=== PATIENT | female | born 1940 | race Caucasian/White ===

== ENCOUNTER 2018-01-03 19:22 | Inpatient (IN) | payer OTHER, MEDICARE ==
[~2018-01-03] VITALS: Ht 167.6 cm; Wt 77.1 kg
[~2018-01-03 19:22] MED LIST: DICY10CA13 PO; LEXA10TA PO; OMEP20TA OR; SIMV40TA OR
[2018-01-03 19:25] VITALS: BP 139/75; PULSE 77; RESP 20; TEMP 97.7; O2SAT 97
[2018-01-03] MEDS ORDERED: SIMV10TA PO (19:29)
[2018-01-03] MEDS ORDERED: OMEP20TA93 PO (19:29)
[2018-01-03] MEDS ORDERED: LEXA10TA PO (19:29)
[2018-01-03 20:25] VITALS: BP 157/79; PULSE 77; RESP 14; O2SAT 98
[2018-01-03] MEDS ORDERED: ONDANSETRON ODT 4 MG TAB PO ONE (20:30)
[2018-01-03] MEDS ORDERED: SODIUM CHLORIDE 0.9% FLUSH 10 ML FLUSH IV FLUSH PRN ×2 (20:30→23:00)
--- NOTE | 2018-01-03 20:37 | PD ---
HPI Chief Complaint: Abdominal Pain Time Seen by Provider: 20:24 Travel History International Travel<30 days: No Contact w/Intl Traveler<30days: No Traveled to known affect area: No History of Present Illness HPI Patient comes to the emergency department complaining of epigastric pain that began around 1500 today. Patient describes pain as a stabbing burning pain that radiates around her bilateral rib cage into her back and up into her chest. She occasionally has some belching up stomach contents with no improvement of symptoms. Patient tried taking Zantac and Mylanta with no improvement of symptoms. Patient reports only abdominal surgery is appendectomy. Denies anything making symptoms worse. Denies any fevers, shortness of breath, chest pain, headache, loss change in bowel or bladder, or previous episodes like this. PFSH Past Medical History Cancer: No High Cholesterol: Yes Diabetes: No Hepatitis: No Hiatal Hernia: No Medical other: Yes (reflux hx of stomach ulcers osteoarthritis) Respiratory: Yes (asthma) Thyroid Disease: No ?: Not Past Surgical History Abdominal Surgery: Yes (appendectomy) Cardiac Surgery: No Ear Surgery: No Endocrine Surgery: No Eye Surgery: No Genitourinary Surgery: No Gynecologic Surgery: No Oral Surgery: Yes (tonsillectomy) Pacemaker: No Thoracic Surgery: No Other Surgery: Yes Social History Alcohol Use: No Tobacco Use: No Substance Use: No Allergies-Medications (Allergen,Severity, Reaction): Coded Allergies: codeine (Unverified Allergy, Severe, n/v, 03/20/17) Reported Meds & Prescriptions Reported Meds & Active Scripts Active Reported Simvastatin 10 Mg Tab 10 Mg PO DAILY Lexapro (Escitalopram Oxalate) 10 Mg Tab 10 Mg PO DAILY Omeprazole 20 Mg Tab 20 Mg PO DAILY Review of Systems Except as stated in HPI: all other systems reviewed are Neg Physical Exam Narrative GENERAL: Well-developed, overly nourished, in no acute distress, and non-ill appearing. SKIN: Focused skin assessment warm and dry. HEAD: Atraumatic. Normocephalic. EYES: Pupils equal and round. EOMI. No scleral icterus. No injection or drainage. ENT: No nasal bleeding or discharge. Mucous membranes pink and moist. NECK: Trachea midline. Supple. No nuclear rigidity. CARDIOVASCULAR: Regular rate and rhythm. No murmur appreciated. Radial pulses 2+, intact, and equal bilaterally. RESPIRATORY: No accessory muscle use. No respiratory distress. Clear to auscultation. Breath sounds equal bilaterally. GASTROINTESTINAL: Abdomen soft, nondistended, and no guarding. Hepatic and splenic margins not palpable. Hypoactive bowel sounds x4. No pulsatile mass. Patient reports tenderness to palpation epigastric and right upper quadrant. MUSCULOSKELETAL: No obvious deformities. No clubbing. No cyanosis. No edema. Full range of motion. NEUROLOGICAL: Awake and alert. No obvious cranial nerve deficits. Motor grossly within normal limits. Normal speech. PSYCHIATRIC: Appropriate mood and affect; insight and judgment normal. Data Data Last Documented VS Vital Signs Date Time Temp Pulse Resp B/P (MAP) Pulse Ox O2 Delivery O2 Flow Rate FiO2 01/03/18 20:25 77 14 157/79 (105) 98 Room Air 01/03/18 19:25 97.7 Orders Orders Complete Blood Count With Diff (01/03/18 20:30) Comprehensive Metabolic Panel (01/03/18 20:30) Lipase (01/03/18 20:30) Prothrombin Time / Inr (Pt) (01/03/18 20:30) Act Partial Throm Time (Ptt) (01/03/18 20:30) Urinalysis - C+S If Indicated (01/03/18 20:30) Ct Abd/Pel W Iv Contrast(Rout) (01/03/18 20:30) Us Abdomen Gallbladder (01/03/18 ) Iv Access Insert/Monitor (01/03/18 20:30) Ecg Monitoring (01/03/18 20:30) Oximetry (01/03/18 20:30) Sodium Chloride 0.9% Flush (Ns Flush) (01/03/18 20:30) Electrocardiogram (01/03/18 20:30) Ckmb (Isoenzyme) Profile (01/03/18 20:30) Magnesium (Mg) (01/03/18 20:30) Troponin I (01/03/18 20:30) Chest, Single Ap (01/03/18 20:30) Ondansetron Odt (Zofran Odt) (01/03/18 20:30) CKMB (01/03/18 20:25) CKMB% (01/03/18 20:25) Iohexol 350 Inj (Omnipaque 350 Inj) (01/03/18 21:51) Al-Mag Hy-Si 40-40-4 Mg/Ml Liq (Mag-Al P (01/03/18 22:00) Lidocaine 2% Viscous (Xylocaine 2% Visco (01/03/18 22:00) Ng Gastric Tube Insert/Monitor (01/03/18 22:13) Place Ng Tube To Low Intermit (01/03/18 22:13) Admit Order (Ed Use Only) (01/03/18 ) Vital Signs (Adult) Q4H (01/03/18 22:21) Activity Oob With Assistance (01/03/18 22:21) Notify Dr: Other (01/03/18 22:21) (Hub Use Only)Inp Phy Cons/Ref (01/03/18 ) Labs Laboratory Tests Test 01/03/18 20:25 White Blood Count 10.8 TH/MM3 Red Blood Count 4.96 MIL/MM3 Hemoglobin 15.3 GM/DL Hematocrit 44.6 % Mean Corpuscular Volume 89.9 FL Mean Corpuscular Hemoglobin 30.9 PG Mean Corpuscular Hemoglobin Concent 34.3 % Red Cell Distribution Width 13.9 % Platelet Count 266 TH/MM3 Mean Platelet Volume 7.5 FL Neutrophils (%) (Auto) 81.2 % Lymphocytes (%) (Auto) 10.7 % Monocytes (%) (Auto) 7.1 % Eosinophils (%) (Auto) 0.6 % Basophils (%) (Auto) 0.4 % Neutrophils # (Auto) 8.8 TH/MM3 Lymphocytes # (Auto) 1.2 TH/MM3 Monocytes # (Auto) 0.8 TH/MM3 Eosinophils # (Auto) 0.1 TH/MM3 Basophils # (Auto) 0.0 TH/MM3 CBC Comment DIFF FINAL Differential Comment Prothrombin Time 10.3 SEC Prothromb Time International Ratio 1.0 RATIO Activated Partial Thromboplast Time 26.3 SEC Blood Urea Nitrogen 18 MG/DL Creatinine 1.05 MG/DL Random Glucose 93 MG/DL Total Protein 7.5 GM/DL Albumin 4.3 GM/DL Calcium Level 9.5 MG/DL Magnesium Level 2.3 MG/DL Alkaline Phosphatase 97 U/L Aspartate Amino Transf (AST/SGOT) 24 U/L Alanine Aminotransferase (ALT/SGPT) 45 U/L Total Bilirubin 0.5 MG/DL Sodium Level 133 MEQ/L Potassium Level 4.4 MEQ/L Chloride Level 95 MEQ/L Carbon Dioxide Level 27.9 MEQ/L Anion Gap 10 MEQ/L Estimat Glomerular Filtration Rate 51 ML/MIN Total Creatine Kinase 147 U/L Creatine Kinase MB 2.2 NG/ML Troponin I LESS THAN 0.02 NG/ML Lipase 108 U/L [facility] Medical Decision Making Medical Screen Exam Complete: Yes Emergency Medical Condition: Yes Interpretation(s) Last Impressions Chest X-Ray 01/03/182029 Signed Impressions: CONCLUSION: Underinflated examination with mild atelectasis at the lung bases. Otherwise, n o acute finding is identified. Abdomen/Pelvis CT 01/03/182029 Signed Impressions: CONCLUSION: 1. Distended fluid-filled loops of proximal and mid small bowel without a foca l transition point or obstructing mass/lesion. The colon is normal in caliber. Gall Bladder Ultrasound 01/03/18 Signed Impressions: CONCLUSION: Abdomen ultrasound is within normal limits. Please refer to today's CT examinat ion report for further description of the abdominal findings. Differential Diagnosis Pancreatitis, pneumonia, atypical chest pain, cholecystitis, biliary colic, UTI , metabolic disturbance, ileus, gastroparesis, SBO Narrative Course Patient seen and examined. IV was established patient placed on continuous cardiac monitoring. Initial laboratory radiological studies were ordered. Patient was given Zofran ODT for nausea. Upon CT findings patient was discussed with Dr. Chandra, who saw and evaluated the patient recommends NG tube placement and admission. Discussed all findings and plan of care patient, who is agreeable for admission. All questions were answered. Dr. Chandra discussed patient with hospitalist, Dr. Cancino, who is agreeable to admit the patient. Patient remained stable throughout ED course. Diagnosis Primary Impression: Small bowel obstruction Admitting Information Admitting Physician Requests: Admit Condition: Stable Asher Mcginnis January 03, 2018 20:37
[2018-01-03 21:00] LABS: AUTOMATED NEUTROPHIL # 8.8 TH/MM3 (1.8-7.7); BASOPHIL % 0.4 % (0.0-2.0); EOSINOPHIL # 0.1 TH/MM3 (0-0.4); EOSINOPHIL % 0.6 % (0.0-4.0); HEMATOCRIT 44.6 % (35.0-46.0); HEMOGLOBIN 15.3 GM/DL (11.6-15.3); LYMPH % 10.7 % (9.0-44.0); LYMPHOCYTE # 1.2 TH/MM3 (1.0-4.8); MEAN CELL VOLUME 89.9 FL (80.0-100.0); MEAN CORPUSCULAR HEMOGLOBIN 30.9 PG (27.0-34.0); MEAN CORPUSCULAR HGB CONC 34.3 % (32.0-36.0); MEAN PLATELET VOLUME 7.5 FL (7.0-11.0); MONO % 7.1 % (0.0-8.0); MONOCYTE # 0.8 TH/MM3 (0-0.9); NEUT % 81.2 % (16.0-70.0); PLATELET COUNT 266 TH/MM3 (150-450); RED BLOOD COUNT 4.96 MIL/MM3 (4.00-5.30); RED CELL DISTRIBUTION WIDTH 13.9 % (11.6-17.2); WHITE BLOOD COUNT 10.8 TH/MM3 (4.0-11.0)
--- NOTE | 2018-01-03 21:12 | RADRPT ---
EXAM DATE: 01/03/2018 9:10 PM EDT AGE/SEX: 77 years / Female INDICATIONS: Lower abdomen pain. Flu like symptoms for three days. CLINICAL DATA: This is the patient's initial encounter. Patient reports that signs and symptoms have been present for 3 days and indicates a pain score of 6/10. MEDICAL/SURGICAL HISTORY: None. None. COMPARISON: [facility], XR CHEST PA AND LAT, 12/27/2017. . FINDINGS: Portable AP view of the chest demonstrates a normal-sized cardiac silhouette. EKG lines overlie the p atient. Lungs are underinflated with mild atelectasis at the lung bases. No effusion, consolidation, or pneumothorax is identified. The bones and soft tissues demonstrate no acute finding. CONCLUSION: Underinflated examination with mild atelectasis at the lung bases. Otherwise, no acute finding is christopher ntified. Electronically signed by: Feroz Enrique MD 01/03/2018 9:11 PM EDT
[2018-01-03 21:22] LABS: ALBUMIN 4.3 GM/DL (3.4-5.0); AST (GOT) 24 U/L (15-37); BICARBONATE 27.9 MEQ/L (21.0-32.0); BLOOD UREA NITROGEN 18 MG/DL (7-18); CALCIUM 9.5 MG/DL (8.5-10.1); CHLORIDE 95 MEQ/L (98-107); CREATININE 1.05 MG/DL (0.50-1.00); GLOMERULAR FILTRATION RATE 51 ML/MIN (>89); GLUCOSE,RANDOM 93 MG/DL (74-106); MAGNESIUM 2.3 MG/DL (1.5-2.5); SODIUM (NA) 133 MEQ/L (136-145)
[2018-01-03 21:24] LABS: ALT (GPT) 45 U/L (10-53)
[2018-01-03 21:28] LABS: ALKALINE PHOSPHATASE 97 U/L (45-117); TOTAL BILIRUBIN ADULT 0.5 MG/DL (0.2-1.0); TOTAL PROTEIN 7.5 GM/DL (6.4-8.2); TROPONIN I LESS THAN 0.02 NG/ML (0.02-0.05)
[2018-01-03 21:33] LABS: PROTHROMBIN TIME - PATIENT 10.3 SEC (9.8-11.6)
[2018-01-03] MEDS ORDERED: IOHEXOL 350 MG/ML 10 ML VIAL (for RAD DIAG) IVCONTRAST ONE (21:51)
--- NOTE | 2018-01-03 21:58 | RADRPT ---
EXAM DATE: 01/03/2018 9:51 PM EDT AGE/SEX: 77 years / Female INDICATIONS: Epigastric pain x 6 hours. CLINICAL DATA: This is the patient's initial encounter. Patient reports that signs and/or symptoms h ave been present for 1 day and indicates a pain score of 3/10. MEDICAL/SURGICAL HISTORY: Hypercholesterolemia. Asthma. Ulcers. Appendectomy. Tonsillectomy. COMPARISON: [facility] – [place], [place], CT ABDOMEN & PELVIS W CONTRAST, 01/03/2018. MEASUREMENTS (cm x cm x cm): Liver:__ 16.4 cm length Common Bile Duct:__ 4mm FINDINGS: Liver: Normal echotexture without focal lesion or ductal dilatation. Portal Vein: Hepatopedal flow seen in portal vein. Common Duct: No intraluminal mass or stone visualized. Gallbladder: Demonstrates no wall thickening or pericholecystic fluid. No stones visualized. Pancreas: The visualized portions are within normal limits Right Kidney: No mass or hydronephrosis Other: None. CONCLUSION: Abdomen ultrasound is within normal limits. Please refer to today's CT examination report for further description of the abdominal findings. Electronically signed by: Feroz Enrique MD 01/03/2018 9:56 PM EDT
[2018-01-03] MEDS ORDERED: ALUMINUM/MAGNESIUM/SIMETH 30 ML CUP PO ONE (22:00)
[2018-01-03] MEDS ORDERED: LIDOCAINE VISCOUS 2% SOLN 15 ML UDC PO ONE (22:00)
--- NOTE | 2018-01-03 22:07 | RADRPT ---
EXAM DATE: 01/03/2018 9:54 PM EDT AGE/SEX: 77 years / Female INDICATIONS: Abdominal pain. CLINICAL DATA: This is the patient's initial encounter. Patient reports that signs and symptoms have been present for 1 day and indicates a pain score of 5/10. MEDICAL/SURGICAL HISTORY: Gastroesophageal reflux disease. Appendectomy. ORAL CONTRAST: No oral contrast ingested. RADIATION DOSE: 7.64 CTDI (mGy) COMPARISON: CT of the chest 01/20/2014 report only. TECHNIQUE: Multiple contiguous axial images were obtained through the abdomen and pelvis following b olus infusion of 100 ml Omnipaque 350 (iohexol) nonionic water-soluble contrast as a single exam do se. No oral contrast ingested. Using automated exposure control and adjustment of the mA and/or kV a ccording to patient size, the radiation dose was kept as low as reasonably achievable to obtain optim al diagnostic quality images. FINDINGS: Lower Lungs: 4 mm nodule within the right lung base. This is described in the prior report. No new no dule.. Liver: The liver has a homogeneous density without space-occupying lesion. There is no dilation of th e biliary tree. Spleen: Homogeneous density without enlargement. 6 mm low-density lesion involving the spleen likely relating to a cyst or hemangioma. Pancreas: Unremarkable without mass or calcification. Kidneys: Normal in size and shape. No evidence of mass or hydronephrosis. Adrenal Glands: Unremarkable. Aorta: The aorta and proximal iliac vessels are grossly unremarkable without aneurysmal dilation. Bowel/Mesentery: Dilated loops of proximal and mid small bowel seen throughout the abdomen. These are fluid-filled. No focal transition. The colon is normal in caliber. No free air or free fluid. No abs cess. The stomach is distended with fluid. Abdominal Wall: Intact. Retroperitoneum: No evidence of adenopathy in the retrocrural, para-aortic, or deep pelvic regions. Bladder: Contours are smooth. Reproductive Organs: No abnormal masses or calcifications seen. Inguinal: The inguinal region is unremarkable without evidence of adenopathy. Bony Structures: Unremarkable. CONCLUSION: 1. Distended fluid-filled loops of proximal and mid small bowel without a focal transition point or obstructing mass/lesion. The colon is normal in caliber. Electronically signed by: Norman Pratt MD 01/03/2018 10:05 PM EDT
[2018-01-03 22:30] VITALS: BP 169/77; PULSE 77; RESP 18; O2SAT 96
[2018-01-03 22:38] LABS: BILIRUBIN, URINE NEG (NEG); BLOOD, URINE NEG (NEG); GLUCOSE,URINE NEG (NEG); KETONE, URINE NEG (NEG); NITRITE,URINE NEG (NEG); PH, URINE 8.5 (5.0-8.5); SQUAMOUS EPITHELIAL CELL URINE <1 /hpf (0-5); URINE COLOR LIGHT-YELLOW (YELLW/STRAW); URINE LEUKOCYTE ESTERASE MOD (NEG)
[2018-01-03] MEDS ORDERED: NALOXONE HCL 0.4 MG/ML AMP IV PUSH PRN (23:00)
[2018-01-03] MEDS ORDERED: METOCLOPRAMIDE HCL 10 MG/2 ML VIAL IV PUSH PRN (23:00)
[2018-01-03] MEDS: SODIUM CHLOR 0.9% 1000 ML INJ 1,000 ML IV SCH (23:25)
--- NOTE | 2018-01-03 23:35 | HHI.HP ---
[facility] Fredy Barnett Do, MD Admission Diagnosis Small bowel obstruction Diagnoses: Travel History International Travel<30 Days: No Contact w/Intl Traveler <30 Da: No Traveled to Known Affected Are: No History of Present Illness 77-year-old female with past medical history significant for irritable bowel, hyperlipidemia, GERD and depression presents to the emergency department for evaluation of abdominal pain. The patient reports her abdominal pain is diffuse throughout her abdomen and began at 3 PM today. She reports she last had a small bowel movement in the waiting room of the emergency department. She denies any episodes of emesis. No nausea or diarrhea. Endorses frequent belching. The patient has had a previous appendectomy and BTL. She denies any chest pain or shortness of breath. No fevers/chills. No lateralizing signs/ symptoms. Review of Systems Except as stated in HPI: all other systems reviewed are Neg Past Family Social History Past Medical History Irritable bowel Hyperlipidemia GERD Depression Past Surgical History Appendectomy BTL Liposuction Reported Medications Reported Meds & Active Scripts Active Reported Simvastatin 10 Mg Tab 10 Mg PO DAILY Lexapro (Escitalopram Oxalate) 10 Mg Tab 10 Mg PO DAILY Omeprazole 20 Mg Tab 20 Mg PO DAILY Allergies: Coded Allergies: codeine (Unverified Allergy, Severe, n/v, 03/20/17) Family History Mother with CAD Social History Negative for alcohol, tobacco and illicit drugs Physical Exam Vital Signs Vital Signs Date Time Temp Pulse Resp B/P (MAP) Pulse Ox O2 Delivery O2 Flow Rate FiO2 01/03/18 23:13 01/03/18 22:30 77 18 169/77 (107) 96 Room Air 01/03/18 20:25 77 14 157/79 (105) 98 Room Air 01/03/18 19:25 97.7 77 20 139/75 (96) 97 Physical Exam GENERAL: female sitting up in bed SKIN: No rashes, ecchymoses or lesions. Cool and dry. HEAD: Atraumatic. Normocephalic. No temporal or scalp tenderness. EYES: Pupils equal round and reactive. Extraocular motions intact. No scleral icterus. No injection or drainage. ENT: Nose without bleeding, purulent drainage or septal hematoma. Throat without erythema, tonsillar hypertrophy or exudate. Uvula midline. Airway patent. NECK: Trachea midline. No JVD or lymphadenopathy. Supple, nontender, no meningeal signs. CARDIOVASCULAR: Regular rate and rhythm without murmurs, gallops, or rubs. RESPIRATORY: Clear to auscultation. Breath sounds equal bilaterally. No wheezes , rales, or rhonchi. GASTROINTESTINAL: Abdomen soft, mildly tender to palpation throughout, nondistended. Hypoactive bowel sounds. No hepato-splenomegaly, or palpable masses. No guarding. MUSCULOSKELETAL: Extremities without clubbing, cyanosis, or edema. No joint tenderness, effusion, or edema noted. No calf tenderness. NEUROLOGICAL: Awake and alert. Cranial nerves II through XII intact. Motor and sensory grossly within normal limits. Normal speech. Laboratory Laboratory Tests Test 01/03/18 20:25 01/03/18 22:30 White Blood Count 10.8 Red Blood Count 4.96 Hemoglobin 15.3 Hematocrit 44.6 Mean Corpuscular Volume 89.9 Mean Corpuscular Hemoglobin 30.9 Mean Corpuscular Hemoglobin Concent 34.3 Red Cell Distribution Width 13.9 Platelet Count 266 Mean Platelet Volume 7.5 Neutrophils (%) (Auto) 81.2 Lymphocytes (%) (Auto) 10.7 Monocytes (%) (Auto) 7.1 Eosinophils (%) (Auto) 0.6 Basophils (%) (Auto) 0.4 Neutrophils # (Auto) 8.8 Lymphocytes # (Auto) 1.2 Monocytes # (Auto) 0.8 Eosinophils # (Auto) 0.1 Basophils # (Auto) 0.0 CBC Comment DIFF FINAL Differential Comment Prothrombin Time 10.3 Prothromb Time International Ratio 1.0 Activated Partial Thromboplast Time 26.3 Blood Urea Nitrogen 18 Creatinine 1.05 Random Glucose 93 Total Protein 7.5 Albumin 4.3 Calcium Level 9.5 Magnesium Level 2.3 Alkaline Phosphatase 97 Aspartate Amino Transf (AST/SGOT) 24 Alanine Aminotransferase (ALT/SGPT) 45 Total Bilirubin 0.5 Sodium Level 133 Potassium Level 4.4 Chloride Level 95 Carbon Dioxide Level 27.9 Anion Gap 10 Estimat Glomerular Filtration Rate 51 Total Creatine Kinase 147 Creatine Kinase MB 2.2 Troponin I LESS THAN 0.02 Lipase 108 Urine Color LIGHT-YELLOW Urine Turbidity CLEAR Urine pH 8.5 Urine Specific Everly 1.050 Urine Protein TRACE Urine Glucose (UA) NEG Urine Ketones NEG Urine Occult Blood NEG Urine Nitrite NEG Urine Bilirubin NEG Urine Urobilinogen LESS THAN 2.0 Urine Leukocyte Esterase MOD Urine RBC 1 Urine WBC 3 Urine Squamous Epithelial Cells <1 Microscopic Urinalysis Comment CULT NOT INDICATED Result Diagram: 01/03/18202401/03/182024 Caprini VTE Risk Assessment Caprini VTE Risk Assessment: Mod/High Risk (score >= 2) Caprini Risk Assessment Model Point Value = 1 Point Value = 2 Point Value = 3 Point Value = 5 Age 41-60 Minor surgery BMI > 25 kg/m2 Swollen legs Varicose veins or History of unexplained or recurrent spontaneous Oral contraceptives or hormone replacement Sepsis (< 1 month) Serious lung disease, including pneumonia (< 1 month) Abnormal pulmonary function Acute myocardial infarction Congestive heart failure (< 1 month) History of inflammatory bowel disease Medical patient at bed rest Age 61-74 Arthroscopic surgery Major open surgery (> 45 min) Laparoscopic surgery (> 45 min) Malignancy Confined to bed (> 72 hours) Immobilizing plaster cast Central venous access Age >= 75 History of VTE Family history of VTE Factor V Leiden Prothrombin [id number] Lupus anticoagulant Anticardiolipin antibodies Elevated serum homocysteine Heparin-induced thrombocytopenia Other congenital or acquired thrombophilia Stroke (< 1 month) Elective arthroplasty Hip, pelvis, or leg fracture Acute spinal cord injury (< 1 month) Prophylaxis Regimen Total Risk Factor Score Risk Level Prophylaxis Regimen 0-1 Low Early ambulation 2 Moderate Order ONE of the following: *Sequential Compression Device (SCD) *Heparin 5000 units SQ BID 3-4 Higher Order ONE of the following medications: *Heparin 5000 units SQ TID *Enoxaparin/Lovenox 40 mg SQ daily (WT < 150 kg, CrCl > 30 mL/min) *Enoxaparin/Lovenox 30 mg SQ daily (WT < 150 kg, CrCl > 10-29 mL/min) *Enoxaparin/Lovenox 30 mg SQ BID (WT < 150 kg, CrCl > 30 mL/min) AND/OR *Sequential Compression Device (SCD) 5 or more Highest Order ONE of the following medications: *Heparin 5000 units SQ TID (Preferred with Epidurals) *Enoxaparin/Lovenox 40 mg SQ daily (WT < 150 kg, CrCl > 30 mL/min) *Enoxaparin/Lovenox 30 mg SQ daily (WT < 150 kg, CrCl > 10-29 mL/min) *Enoxaparin/Lovenox 30 mg SQ BID (WT < 150 kg, CrCl > 30 mL/min) AND *Sequential Compression Device (SCD) Assessment and Plan Assessment and Plan Assessment/plan: 1. Partial small bowel obstruction CT of the abdomen/pelvis significant for distended fluid-filled loops of proximal and mid small bowel without a focal transition point or obstructing mass. N.p.o. Patient unable to tolerate NG tube General surgery consulted, appreciate recommendations 2. Hyperlipidemia/depression/GERD Continue home medications once tolerating p.o. FEN N.p.o. Electrolytes: Monitor and replete as needed NS at 100 cc/hour Holding pharmacologic anticoagulation in case operative intervention is needed Physician Certification 2 Midnight Certification Type: Admission for Inpatient Services Order for Inpatient Services The services are ordered in accordance with Medicare regulations or non- Medicare payer requirements, as applicable. In the case of services not specified as inpatient-only, they are appropriately provided as inpatient services in accordance with the 2-midnight benchmark. Estimated LOS (days): 2 2 days is the estimated time the patient will need to remain in the hospital, assuming treatment plan goals are met and no additional complications. Post-Hospital Plan: Not yet determined Maria Teresa Cancino MD January 03, 2018 23:35
[2018-01-04] VITALS: BP 146/68; PULSE 79; RESP 16; TEMP 97.9; O2SAT 96
[2018-01-04 04:56] VITALS: BP 144/67; PULSE 74; RESP 16; TEMP 98.1; O2SAT 95
[2018-01-04 05:51] LABS: AUTOMATED NEUTROPHIL # 5.2 TH/MM3 (1.8-7.7); BASOPHIL % 0.7 % (0.0-2.0); EOSINOPHIL % 0.6 % (0.0-4.0); HEMATOCRIT 39.4 % (35.0-46.0); HEMOGLOBIN 13.8 GM/DL (11.6-15.3); LYMPH % 13.5 % (9.0-44.0); LYMPHOCYTE # 0.9 TH/MM3 (1.0-4.8); MEAN CELL VOLUME 89.6 FL (80.0-100.0); MEAN CORPUSCULAR HEMOGLOBIN 31.4 PG (27.0-34.0); MEAN CORPUSCULAR HGB CONC 35.1 % (32.0-36.0); MEAN PLATELET VOLUME 7.3 FL (7.0-11.0); MONO % 8.6 % (0.0-8.0); MONOCYTE # 0.6 TH/MM3 (0-0.9); NEUT % 76.6 % (16.0-70.0); PLATELET COUNT 217 TH/MM3 (150-450); RED CELL DISTRIBUTION WIDTH 13.5 % (11.6-17.2); WHITE BLOOD COUNT 6.8 TH/MM3 (4.0-11.0)
[2018-01-04 06:29] LABS: BICARBONATE 25.3 MEQ/L (21.0-32.0); CALCIUM 8.7 MG/DL (8.5-10.1); CREATININE 0.87 MG/DL (0.50-1.00)
[2018-01-04 08:00] VITALS: BP 138/61; PULSE 71; RESP 18; TEMP 97.8; O2SAT 94
--- NOTE | 2018-01-04 08:15 | HHI.PR ---
Subjective Remarks This nausea no vomiting. Tube taken out. Less Abdominal pain. With diarrhea now. No blood in it. No fever or chills. Diet is advanced to clear liquid diet per surgeon. Objective Vitals Vital Signs Date Time Temp Pulse Resp B/P (MAP) Pulse Ox O2 Delivery O2 Flow Rate FiO2 01/04/18 04:56 98.1 74 16 144/67 (92) 95 01/04/18 00:00 97.9 79 16 146/68 (94) 96 01/03/18 23:13 01/03/18 22:30 77 18 169/77 (107) 96 Room Air 01/03/18 20:25 77 14 157/79 (105) 98 Room Air 01/03/18 19:25 97.7 77 20 139/75 (96) 97 I/O 01/03/18 01/03/18 01/03/18 01/04/18 01/04/18 01/04/18 07:00 15:00 23:00 07:00 15:00 23:00 Intake Total 0 ml Output Total 400 ml Balance -400 ml Intake Oral 0 ml Gastric Drainage Total 400 ml # Voids 2 # Bowel Movements 1 Result Diagram: 01/04/18 0538 01/04/18 0538 Imaging Last Impressions Chest X-Ray 01/03/182029 Signed Impressions: CONCLUSION: Underinflated examination with mild atelectasis at the lung bases. Otherwise, n o acute finding is identified. Abdomen/Pelvis CT 01/03/182029 Signed Impressions: CONCLUSION: 1. Distended fluid-filled loops of proximal and mid small bowel without a foca l transition point or obstructing mass/lesion. The colon is normal in caliber. Gall Bladder Ultrasound 01/03/18 0000 Signed Impressions: CONCLUSION: Abdomen ultrasound is within normal limits. Please refer to today's CT examinat ion report for further description of the abdominal findings. Objective Remarks GENERAL: female sitting up in bed CARDIOVASCULAR: Regular rate and rhythm without murmurs, gallops, or rubs. RESPIRATORY: Clear to auscultation. Breath sounds equal bilaterally. No wheezes , rales, or rhonchi. GASTROINTESTINAL: Abdomen soft, mildly tender to palpation throughout, nondistended. Hypoactive bowel sounds. No hepato-splenomegaly, or palpable masses. No guarding. MUSCULOSKELETAL: Extremities without clubbing, cyanosis, or edema. No joint tenderness, effusion, or edema noted. No calf tenderness. NEUROLOGICAL: Awake and alert. Cranial nerves II through XII intact. Motor and sensory grossly within normal limits. Normal speech. A/P Assessment and Plan Advance diet to partial small bowel obstruction CT of the abdomen/pelvis significant for distended fluid-filled loops of proximal and mid small bowel without a focal transition point or obstructing mass. Clear liquid diet. DC NG tube General surgery consulted, appreciate recommendations IVF Hyperlipidemia/depression/GERD Continue home medications once tolerating p.o. Discussed with the patient, family at bedside, Rina from surgical team, the nurse. Discharge plan: Pending improvement. Advance diet as tolerated. Discharge when improved, tolerates diet and cleared by consultants. Susy Ybarra MD Jan 04, 2018 08:15
[2018-01-04] MEDS: SODIUM CHLORIDE 0.9% FLUSH 10 ML FLUSH IV FLUSH SCH ×2 (09:00→21:00)
[2018-01-04] MEDS: SODIUM CHLOR 0.9% 1000 ML INJ 1,000 ML IV SCH ×2 (09:22→18:56)
--- NOTE | 2018-01-04 11:26 | PD.CONS ---
cc: Lang Castro MD HPI Service General Surgery Consult Requested By Ewa PAYAN Reason for Consult Partial small bowel obstruction Primary Care Physician Fredy Barnett Do, MD History of Present Illness This is a 77 year old female with a past medical history of irritable bowel syndrome, dyslipidemia, GERD and depression who presented to the ED yesterday with a gradual onset of abdominal pain that began at 3PM and increased in intensity. She reports nausea but no vomiting. She reports some associated back pain and bloating. She ate breakfast and lunch as usual. A CT abdomen/ pelvis was obtained which reveals some distended fluid filled loops of proximal and mid small bowel without evidence of mass or transition point. Her laboratory work is essentially negative. She reports she had a normal colonoscopy about 4 years ago. Of note, the patient was being worked up by her [employer] for shortness of breath. She had a echocardiogram which was normal and a nuclear stress test which was also normal. A General Surgery consultation has been requested. Review of Systems Constitutional: DENIES: Fatigue, Weight gain, Weight loss, Night Sweats Endocrine: DENIES: Polydipsia, Polyuria, Polyphagia Eyes: DENIES: Blurred vision, Diplopia Ears, nose, mouth, throat: DENIES: Hearing loss Respiratory: DENIES: Cough Cardiovascular: DENIES: Chest pain, Lower Extremity Edema Gastrointestinal: COMPLAINS OF: Abdominal pain, Nausea, DENIES: Black stools, Vomiting Genitourinary: DENIES: Dysmenorrhea, Urinary frequency Musculoskeletal: DENIES: Muscle aches, Stiffness Integumentary: DENIES: Abnormal pigmentation Hematologic/lymphatic: DENIES: Bruising Immunologic/allergic: DENIES: Eczema Neurologic: DENIES: Headache, Localized weakness Psychiatric: DENIES: Confusion, Mood changes, Depression Past Family Social History Past Medical History Irritable bowel syndrome Dyslipidemia GERD Depression Past Surgical History Appendectomy Bilateral tubal ligation Liposuction Reported Medications Simvastatin Lexapro Omeprazole Allergies: Coded Allergies: codeine (Unverified Allergy, Severe, n/v, 03/20/17) Active Ordered Medications Current Medications Medications (Trade) Dose Ordered Sig/Rebecca Route Start Time Stop Time Status Last Admin (NS Flush) 2 ml UNSCH PRN IV FLUSH 01/03/18 23:00 (NS Flush) 2 ml BID IV FLUSH 01/04/18 09:00 (Reglan Inj) 5 mg Q6H PRN IV PUSH 01/03/18 23:00 (Narcan Inj) 0.4 mg UNSCH PRN IV PUSH 01/03/18 23:00 Sodium Chloride 1,000 ml @ 100 mls/hr Q10H IV 01/03/18 23:15 01/04/18 09:22 Family History Noncontributory Social History Denies tobacco use Denies ETOH use Physical Exam Vital Signs Vital Signs Date Time Temp Pulse Resp B/P (MAP) Pulse Ox O2 Delivery O2 Flow Rate FiO2 01/04/18 04:56 98.1 74 16 144/67 (92) 95 01/04/18 00:00 97.9 79 16 146/68 (94) 96 01/03/18 23:13 01/03/18 22:30 77 18 169/77 (107) 96 Room Air 01/03/18 20:25 77 14 157/79 (105) 98 Room Air 01/03/18 19:25 97.7 77 20 139/75 (96) 97 Physical Exam GENERAL: 77 year old female ambulating in room. SKIN: Warm and dry. HEAD: Atraumatic. Normocephalic. EYES: Pupils equal and round. No scleral icterus. No injection or drainage. ENT: No nasal bleeding or discharge. Mucous membranes pink and moist. NECK: Trachea midline. CARDIOVASCULAR: Regular rate and rhythm. RESPIRATORY: No accessory muscle use. Clear to auscultation. Breath sounds equal bilaterally. GASTROINTESTINAL: Abdomen soft, non-tender, nondistended. MUSCULOSKELETAL: Extremities without clubbing, cyanosis, or edema. No obvious deformities. NEUROLOGICAL: Awake and alert. No obvious cranial nerve deficits. Motor grossly within normal limits. Five out of 5 muscle strength in the arms and legs. Normal speech. PSYCHIATRIC: Appropriate mood and affect; insight and judgment normal. Laboratory Laboratory Tests Test 01/03/18 20:25 01/03/18 22:30 01/04/18 05:38 White Blood Count 10.8 6.8 Red Blood Count 4.96 4.40 Hemoglobin 15.3 13.8 Hematocrit 44.6 39.4 Mean Corpuscular Volume 89.9 89.6 Mean Corpuscular Hemoglobin 30.9 31.4 Mean Corpuscular Hemoglobin Concent 34.3 35.1 Red Cell Distribution Width 13.9 13.5 Platelet Count 266 217 Mean Platelet Volume 7.5 7.3 Neutrophils (%) (Auto) 81.2 76.6 Lymphocytes (%) (Auto) 10.7 13.5 Monocytes (%) (Auto) 7.1 8.6 Eosinophils (%) (Auto) 0.6 0.6 Basophils (%) (Auto) 0.4 0.7 Neutrophils # (Auto) 8.8 5.2 Lymphocytes # (Auto) 1.2 0.9 Monocytes # (Auto) 0.8 0.6 Eosinophils # (Auto) 0.1 0.0 Basophils # (Auto) 0.0 0.0 CBC Comment DIFF FINAL DIFF FINAL Differential Comment Prothrombin Time 10.3 Prothromb Time International Ratio 1.0 Activated Partial Thromboplast Time 26.3 Blood Urea Nitrogen 18 15 Creatinine 1.05 0.87 Random Glucose 93 95 Total Protein 7.5 Albumin 4.3 Calcium Level 9.5 8.7 Magnesium Level 2.3 Alkaline Phosphatase 97 Aspartate Amino Transf (AST/SGOT) 24 Alanine Aminotransferase (ALT/SGPT) 45 Total Bilirubin 0.5 Sodium Level 133 136 Potassium Level 4.4 4.1 Chloride Level 95 101 Carbon Dioxide Level 27.9 25.3 Anion Gap 10 10 Estimat Glomerular Filtration Rate 51 63 Total Creatine Kinase 147 Creatine Kinase MB 2.2 Troponin I LESS THAN 0.02 Lipase 108 Urine Color LIGHT-YELLOW Urine Turbidity CLEAR Urine pH 8.5 Urine Specific [place] 1.050 Urine Protein TRACE Urine Glucose (UA) NEG Urine Ketones NEG Urine Occult Blood NEG Urine Nitrite NEG Urine Bilirubin NEG Urine Urobilinogen LESS THAN 2.0 Urine Leukocyte Esterase MOD Urine RBC 1 Urine WBC 3 Urine Squamous Epithelial Cells <1 Microscopic Urinalysis Comment CULT NOT INDICATED Result Diagram: 01/04/1853701/04/18537 Imaging Last 48 hours Impressions Chest X-Ray 01/03/182029 Signed Impressions: CONCLUSION: Underinflated examination with mild atelectasis at the lung bases. Otherwise, n o acute finding is identified. Abdomen/Pelvis CT 01/03/182029 Signed Impressions: CONCLUSION: 1. Distended fluid-filled loops of proximal and mid small bowel without a foca l transition point or obstructing mass/lesion. The colon is normal in caliber. Gall Bladder Ultrasound 01/03/18 0000 Signed Impressions: CONCLUSION: Abdomen ultrasound is within normal limits. Please refer to today's CT examinat ion report for further description of the abdominal findings. Assessment and Plan Assessment and Plan 77 year old female with PSBO on imaging; abdominal pain -+ BM this morning -Sips of clear liquids -Continue IVF -Abdominal exam benign -Pain control -OOB and mobilize -Will continue non operative management for now -If no improvements may benefit from SBFT in the next 24-48 hours -Thank you for this consult; We will continue to follow Discussed Condition With Dr. Matthew Godoy RN Mr. and Mrs. Reed Attending Statement patient seen at bedside as above ok for sips likley ileus vs psbo will check sbft if no improvement Attestation The exam, history, and the medical decision-making described in the above note were completed with the assistance of the mid-level provider. I reviewed and agree with the findings presented. I attest that I had a [id number] encounter with the patient on the same day, and personally performed and documented my assessment and findings in the medical record. Rina Workman/Revenue Enforcement Agent ORA Jan 04, 2018 11:26 Lang Castro MD Jan 08, 2018 11:52
[2018-01-04 12:00] VITALS: BP 120/58; PULSE 60; RESP 18; TEMP 97.4; O2SAT 98
[2018-01-04] MEDS ORDERED: DOCUSATE SODIUM 100 MG CAP PO ONE (12:00)
--- NOTE | 2018-01-04 14:59 | EKG ---
Date Performed: 01/03/2018 Time Performed: 20:32:19 PTAGE: 77 years EKG: Sinus rhythm POSSIBLE LEFT ATRIAL ENLARGEMENT INCOMPLETE RIGHT BUNDLE BRANCH BLOCK BORDERLINE ECG NO PREVIOUS TRACING DOCTOR: Bradley Pyle Interpretating Date/Time 01/04/2018 14:54:26
[2018-01-04 16:00] VITALS: BP 119/61; PULSE 69; RESP 16; TEMP 97.6; O2SAT 95
[2018-01-04] MEDS: ACETAMINOPHEN 325 MG TAB PO PRN (18:12)
[2018-01-04 20:00] VITALS: BP 120/57; PULSE 67; RESP 18; TEMP 97.5; O2SAT 95
[2018-01-05] VITALS (8 sets, daily range): BP systolic 124–138; BP diastolic 58–68; PULSE 63–72; RESP 17–18; TEMP 97.6–97.9; O2SAT 94–98
[2018-01-05] MEDS: SODIUM CHLOR 0.9% 1000 ML INJ 1,000 ML IV SCH ×2 (05:15→14:11)
[2018-01-05] MEDS: SODIUM CHLORIDE 0.9% FLUSH 10 ML FLUSH IV FLUSH SCH ×2 (09:00→20:58)
--- NOTE | 2018-01-05 10:50 | HHI.PR ---
Subjective Remarks Tolerates clear liquid diet. Advance diet to full liquid diet. Less abdominal pain. Less diarrhea. No fever or chills. No nausea vomiting. Objective Vitals Vital Signs Date Time Temp Pulse Resp B/P (MAP) Pulse Ox O2 Delivery O2 Flow Rate FiO2 01/05/18 08:00 97.7 65 17 132/61 (84) 98 01/05/18 04:00 97.6 63 18 128/59 (82) 96 01/05/18 00:00 97.6 72 18 132/68 (89) 96 01/04/18 20:00 97.5 67 18 120/57 (78) 95 01/04/18 16:00 97.6 69 16 119/61 (80) 95 01/04/18 12:00 97.4 60 18 120/58 (78) 98 I/O 01/04/18 01/04/18 01/04/18 01/05/18 01/05/18 01/05/18 07:00 15:00 23:00 07:00 15:00 23:00 Intake Total 0 ml 1000 ml 1480 ml 1120 ml Output Total 400 ml 650 ml Balance -400 ml 350 ml 1480 ml 1120 ml Intake Oral 0 ml 480 ml 120 ml IV Total 1000 ml 1000 ml 1000 ml Output Stool Total 650 ml Gastric Drainage Total 400 ml # Voids 2 3 2 # Bowel Movements 1 5 2 2 Result Diagram: 01/04/1853701/04/18537 Imaging Last Impressions Chest X-Ray 01/03/182029 Signed Impressions: CONCLUSION: Underinflated examination with mild atelectasis at the lung bases. Otherwise, n o acute finding is identified. Abdomen/Pelvis CT 01/03/182029 Signed Impressions: CONCLUSION: 1. Distended fluid-filled loops of proximal and mid small bowel without a foca l transition point or obstructing mass/lesion. The colon is normal in caliber. Gall Bladder Ultrasound 01/03/18 0000 Signed Impressions: CONCLUSION: Abdomen ultrasound is within normal limits. Please refer to today's CT examinat ion report for further description of the abdominal findings. Objective Remarks GENERAL: female sitting up in bed CARDIOVASCULAR: Regular rate and rhythm without murmurs, gallops, or rubs. RESPIRATORY: Clear to auscultation. Breath sounds equal bilaterally. No wheezes , rales, or rhonchi. GASTROINTESTINAL: Abdomen soft, mildly tender to palpation throughout, nondistended. Hypoactive bowel sounds. No hepato-splenomegaly, or palpable masses. No guarding. MUSCULOSKELETAL: Extremities without clubbing, cyanosis, or edema. No joint tenderness, effusion, or edema noted. No calf tenderness. NEUROLOGICAL: Awake and alert. Cranial nerves II through XII intact. Motor and sensory grossly within normal limits. Normal speech. A/P Assessment and Plan Advance diet to partial small bowel obstruction CT of the abdomen/pelvis significant for distended fluid-filled loops of proximal and mid small bowel without a focal transition point or obstructing mass. Advance diet to full liquid diet DC NG tube General surgery consulted, appreciate recommendations IVF Hyperlipidemia/depression/GERD Continue home medications once tolerating p.o. Discussed with the patient, family at bedside, Rina from surgical team, the nurse. Discharge plan: Pending improvement. Advance diet as tolerated. Discharge when improved, tolerates diet and cleared by consultants. Susy Ybarra MD Jan 05, 2018 10:50
--- NOTE | 2018-01-05 14:55 | PD.CONS ---
HPI History of Present Illness This is a 77 year old F with PMH significant for IBS, hyperlipidemia, GERD, and depression who presented to the ER two days ago with complaints of abdominal pain. Abdominal pain began earlier in the afternoon when she was leaving her husbands doctors appt, she states progressively got worse throughout the day and became unbearable at around 3 PM in the afternoon after taking Maalox and other medications she can not remember the name of in an attempt for relief. States pain was located under her ribs and in her lower abdomen. She also noted significant abdominal distention after taking medication. Also complaining of a sensation of something coming up her throat that she describes as GERD. Takes daily Omeprazole and has also been taking Zantac over the counter with little relief. CT revealed distended fluid-filled loops of proximal and mid small bowel without a focal transition point or obstructing mass/lesion. Colon normal in caliber. Pt was seen by GS who recommended non operative management and SBFT if no improvement in symptoms. Pt denies any continued nausea or vomiting since the NG to LIWS which has since been removed. Also complaining of diarrhea that began during hospitalization. Fecal urgency after liquid meals. Pt denies previous EGD. Last colonoscopy approximately 4 years ago and reports normal exam, was done by [facility] but has not followed up at that clinic since then. Denies ETOH, smoking, NSAID use. (Harriett Littlejohn) PFSH Past Medical History Irritable bowel Hyperlipidemia GERD Depression Past Surgical History Appendectomy BTL Liposuction Colonoscopy (Harriett Littlejohn) Coded Allergies: codeine (Unverified Allergy, Severe, n/v, 03/20/17) Family History Mother with CAD Social History Negative for alcohol, tobacco and illicit drugs (Harriett Littlejohn) Review of Systems Gastrointestinal: COMPLAINS OF: Abdominal pain, Diarrhea, Nausea, Swelling of Abdomen, Heartburn, DENIES: Black stools, Bloody stools, Constipation, Vomiting , Difficulty Swallowing, Anorexia, Odynophagia, Hematemesis (Harriett Littlejohn) GI Exam Vitals I&O Vital Signs Date Time Temp Pulse Resp B/P (MAP) Pulse Ox O2 Delivery O2 Flow Rate FiO2 01/05/18 12:00 97.9 64 17 125/60 (81) 96 01/05/18 08:00 97.7 65 17 132/61 (84) 98 01/05/18 04:00 97.6 63 18 128/59 (82) 96 01/05/18 00:00 97.6 72 18 132/68 (89) 96 01/04/18 20:00 97.5 67 18 120/57 (78) 95 01/04/18 16:00 97.6 69 16 119/61 (80) 95 I/O 01/04/18 01/04/18 01/04/18 01/05/18 01/05/18 01/05/18 07:00 15:00 23:00 07:00 15:00 23:00 Intake Total 0 ml 1000 ml 1480 ml 1120 ml 1000 ml Output Total 400 ml 650 ml Balance -400 ml 350 ml 1480 ml 1120 ml 1000 ml Intake Oral 0 ml 480 ml 120 ml IV Total 1000 ml 1000 ml 1000 ml 1000 ml Output Stool Total 650 ml Gastric Drainage Total 400 ml # Voids 2 3 2 # Bowel Movements 1 5 2 2 Imaging Last Impressions Chest X-Ray 01/03/182029 Signed Impressions: CONCLUSION: Underinflated examination with mild atelectasis at the lung bases. Otherwise, n o acute finding is identified. Abdomen/Pelvis CT 01/03/182029 Signed Impressions: CONCLUSION: 1. Distended fluid-filled loops of proximal and mid small bowel without a foca l transition point or obstructing mass/lesion. The colon is normal in caliber. Gall Bladder Ultrasound 01/03/18 Signed Impressions: CONCLUSION: Abdomen ultrasound is within normal limits. Please refer to today's CT examinat ion report for further description of the abdominal findings. Physical Examination HEENT: Normocephalic; atraumatic CHEST: Even/unlabored CARDIAC: RRR ABDOMEN: Soft, nondistended, nontender; bowel sounds active EXTREMITIES: No clubbing, cyanosis, or edema. SKIN: Normal; no rash; no jaundice. BACKBREAKER: Alert and oriented times three. (Harriett Littlejohn) Assessment and Plan Plan Assessment: - Nausea with no emesis prior to arrival. Pt describes symptoms as "GERD". Takes Omeprazole and Zantac with little relief in symptoms. Has never had EGD. - Abdominal pain and bloating- Pain began day of arrival, started in the morning and progressively became worse until it was unbearable at around 3 PM. She tried taking OTC medications including Maalox, she can not remember the names of the others and this made the pain worse. CT abdomen and pelvis W IV contrast (01/03) Distended fluid-filled loops of proximal and mid small bowel without a focal transition point or obstructing mass/lesion. The colon is normal in caliber. Pt seen by GS who recommends nonoperative management- NG tube has been discontinued, pt states tolerating clear liquids - Diarrhea began after arrival, of note took OTC medication prior to arrival states fecal urgency after eating Plan: EGD Sunday if still symptomatic Full liquid diet OK to advance in AM if tolerating Further recommendations based on clinical course and results of above Pt has been seen and examined by myself and Dr. Hayden and this note is written on his behalf (Harriett Littlejohn) Physician Comments Seen and examined, discussed with patient and . Symptoms compatible with viral gastroenteritis. Currently tolerating liquid diet and if continued to be so to advance to soft diet tomorrow. Thank you for the consult. (Uriel Hayden MD) Harriett Littlejohn Jan 05, 2018 14:55 Uriel Hayden MD Jan 05, 2018 16:33
--- NOTE | 2018-01-05 18:52 | HHI.PR ---
Subjective Subjective Notes Patient tolerating liquids Says her pain is about the same as yesterday afternoon. No BM Objective Vitals/I&O Vital Signs Date Time Temp Pulse Resp B/P (MAP) Pulse Ox O2 Delivery O2 Flow Rate FiO2 01/05/18 16:00 97.9 71 17 138/61 (86) 95 01/03/18 22:30 Room Air Radiology Last 48 hours Impressions Chest X-Ray 01/03/182029 Signed Impressions: CONCLUSION: Underinflated examination with mild atelectasis at the lung bases. Otherwise, n o acute finding is identified. Abdomen/Pelvis CT 01/03/182029 Signed Impressions: CONCLUSION: 1. Distended fluid-filled loops of proximal and mid small bowel without a foca l transition point or obstructing mass/lesion. The colon is normal in caliber. Gall Bladder Ultrasound 01/03/18 0000 Signed Impressions: CONCLUSION: Abdomen ultrasound is within normal limits. Please refer to today's CT examinat ion report for further description of the abdominal findings. Abdomen: Non-distended, Other (Minimal tenderness to palpation; minimal guarding; no rebound) A/P Problem List: (1) GERD (gastroesophageal reflux disease) ICD Codes: K21.9 - Gastro-esophageal reflux disease without esophagitis (2) Hyperlipidemia ICD Codes: E78.5 - Hyperlipidemia, unspecified (3) Irritable bowel syndrome (IBS) ICD Codes: K58.9 - Irritable bowel syndrome without diarrhea Assessment and Plan Ileus vs. partial SBO, improved. Patient tolerating liquids She would like to try regular foods; will advance tomorrow if uneventful night. Milton Pascual MD Jan 05, 2018 18:52
[2018-01-06] MEDS: SODIUM CHLOR 0.9% 1000 ML INJ 1,000 ML IV SCH ×3 (00:11→20:46)
[2018-01-06 04:00] VITALS: BP 136/63; PULSE 63; RESP 18; TEMP 97.7; O2SAT 96
[2018-01-06 08:00] VITALS: BP 128/59; PULSE 67; RESP 19; TEMP 98.1; O2SAT 98
--- NOTE | 2018-01-06 08:57 | HHI.PR ---
Subjective Remarks Feels improving and wants to try regular diet. No nausea or vomiting. Had a BM in the morning loose. No fever or chills. No abd pain so far. Objective Vitals Vital Signs Date Time Temp Pulse Resp B/P (MAP) Pulse Ox O2 Delivery O2 Flow Rate FiO2 01/06/18 08:00 98.1 67 19 128/59 (82) 98 01/06/18 04:00 97.7 63 18 136/63 (87) 96 01/05/18 20:00 97.8 66 18 124/58 (80) 94 01/05/18 19:56 72 01/05/18 16:00 97.9 71 17 138/61 (86) 95 01/05/18 14:50 64 01/05/18 12:00 97.9 64 17 125/60 (81) 96 I/O 01/05/18 01/05/18 01/05/18 01/06/18 01/06/18 01/06/18 07:00 15:00 23:00 07:00 15:00 23:00 Intake Total 1120 ml 1000 ml 720 ml 240 ml Balance 1120 ml 1000 ml 720 ml 240 ml Intake Oral 120 ml 720 ml 240 ml IV Total 1000 ml 1000 ml # Voids 2 5 2 # Bowel Movements 2 Result Diagram: 01/04/1853701/04/18537 Imaging Last Impressions Chest X-Ray 01/03/182029 Signed Impressions: CONCLUSION: Underinflated examination with mild atelectasis at the lung bases. Otherwise, n o acute finding is identified. Abdomen/Pelvis CT 01/03/182029 Signed Impressions: CONCLUSION: 1. Distended fluid-filled loops of proximal and mid small bowel without a foca l transition point or obstructing mass/lesion. The colon is normal in caliber. Gall Bladder Ultrasound 01/03/18 0000 Signed Impressions: CONCLUSION: Abdomen ultrasound is within normal limits. Please refer to today's CT examinat ion report for further description of the abdominal findings. Objective Remarks GENERAL: female sitting up in bed CARDIOVASCULAR: Regular rate and rhythm without murmurs, gallops, or rubs. RESPIRATORY: Clear to auscultation. Breath sounds equal bilaterally. No wheezes , rales, or rhonchi. GASTROINTESTINAL: Abdomen soft, mildly tender to palpation throughout, nondistended. Hypoactive bowel sounds. No hepato-splenomegaly, or palpable masses. No guarding. MUSCULOSKELETAL: Extremities without clubbing, cyanosis, or edema. No joint tenderness, effusion, or edema noted. No calf tenderness. NEUROLOGICAL: Awake and alert. Cranial nerves II through XII intact. Motor and sensory grossly within normal limits. Normal speech. A/P Assessment and Plan Advance diet to partial small bowel obstruction CT of the abdomen/pelvis significant for distended fluid-filled loops of proximal and mid small bowel without a focal transition point or obstructing mass. Advance diet to regular diet DC NG tube General surgery consulted, appreciate recommendations no surgical interventio indicated IVF Consulted GI, poss EGD if not improving. However patient is imprpving advance diet to regular diet. Hyperlipidemia/depression/GERD Continue home medications once tolerating p.o. Discussed with the patient, the nurse. Discharge plan: Pending improvement. Advance diet as tolerated. Discharge when improved, tolerates diet and cleared by consultants. PO ss DC tomorrow if tolerates diet. Susy Ybarra MD Jan 06, 2018 08:57
[2018-01-06] MEDS: SODIUM CHLORIDE 0.9% FLUSH 10 ML FLUSH IV FLUSH SCH ×2 (09:00→20:46)
--- NOTE | 2018-01-06 11:47 | HHI.PR ---
cc: Lang Castro MD Subjective Subjective Notes no issues, several bms, pain resolved Objective Vitals/I&O Vital Signs Date Time Temp Pulse Resp B/P (MAP) Pulse Ox O2 Delivery O2 Flow Rate FiO2 01/06/18 08:00 98.1 67 19 128/59 (82) 98 01/03/18 22:30 Room Air Radiology Last 48 hours Impressions Chest X-Ray 01/03/182029 Signed Impressions: CONCLUSION: Underinflated examination with mild atelectasis at the lung bases. Otherwise, n o acute finding is identified. Abdomen/Pelvis CT 01/03/182029 Signed Impressions: CONCLUSION: 1. Distended fluid-filled loops of proximal and mid small bowel without a foca l transition point or obstructing mass/lesion. The colon is normal in caliber. Gall Bladder Ultrasound 01/03/18 0000 Signed Impressions: CONCLUSION: Abdomen ultrasound is within normal limits. Please refer to today's CT examinat ion report for further description of the abdominal findings. Lungs: Clear Abdomen: Other (soft nt/nd) A/P Problem List: (1) GERD (gastroesophageal reflux disease) ICD Codes: K21.9 - Gastro-esophageal reflux disease without esophagitis (2) Hyperlipidemia ICD Codes: E78.5 - Hyperlipidemia, unspecified (3) Irritable bowel syndrome (IBS) ICD Codes: K58.9 - Irritable bowel syndrome without diarrhea Assessment and Plan Ileus vs. partial SBO, improved. Patient tolerating liquids advance to reg soft diet await gi recs possible egd tomorrow Lang Castro MD Jan 06, 2018 11:47
[2018-01-06 12:00] VITALS: BP 116/70; PULSE 61; RESP 19; TEMP 97.4; O2SAT 98
--- NOTE | 2018-01-06 14:30 | HHI.GIFU ---
Subjective Remarks Pt reports feeling much better today Had soft foods for lunch, tolerating so far Denies nausea, vomiting, abdominal pain Diarrhea seems to be slowing down at bedside (Harriett Littlejohn) Objective Vitals I&O Vital Signs Date Time Temp Pulse Resp B/P (MAP) Pulse Ox O2 Delivery O2 Flow Rate FiO2 01/06/18 12:00 97.4 61 19 116/70 (85) 98 01/06/18 08:00 98.1 67 19 128/59 (82) 98 01/06/18 04:00 97.7 63 18 136/63 (87) 96 01/05/18 20:00 97.8 66 18 124/58 (80) 94 01/05/18 19:56 72 01/05/18 16:00 97.9 71 17 138/61 (86) 95 01/05/18 14:50 64 I/O 01/05/18 01/05/18 01/05/18 01/06/18 01/06/18 01/06/18 07:00 15:00 23:00 07:00 15:00 23:00 Intake Total 1120 ml 1000 ml 720 ml 240 ml Balance 1120 ml 1000 ml 720 ml 240 ml Intake Oral 120 ml 720 ml 240 ml IV Total 1000 ml 1000 ml # Voids 2 5 2 # Bowel Movements 2 Imaging Last Impressions Chest X-Ray 01/03/182029 Signed Impressions: CONCLUSION: Underinflated examination with mild atelectasis at the lung bases. Otherwise, n o acute finding is identified. Abdomen/Pelvis CT 01/03/182029 Signed Impressions: CONCLUSION: 1. Distended fluid-filled loops of proximal and mid small bowel without a foca l transition point or obstructing mass/lesion. The colon is normal in caliber. Gall Bladder Ultrasound 01/03/18 Signed Impressions: CONCLUSION: Abdomen ultrasound is within normal limits. Please refer to today's CT examinat ion report for further description of the abdominal findings. Physical Exam HEENT: Normocephalic; atraumatic CHEST: Even/unlabored CARDIAC: RRR ABDOMEN: Soft, nondistended, nontender; bowel sounds active EXTREMITIES: No clubbing, cyanosis, or edema. SKIN: Normal; no rash; no jaundice. SYSTEM SAFETY MANAGER: Alert and oriented times three. (Harriett Littlejohn) Assessment and Plan Plan Assessment: - Nausea with no emesis prior to arrival. Pt describes symptoms as "GERD". Takes Omeprazole and Zantac with little relief in symptoms. Has never had EGD. - Abdominal pain and bloating- Pain began day of arrival, started in the morning and progressively became worse until it was unbearable at around 3 PM. She tried taking OTC medications including Maalox, she can not remember the names of the others and this made the pain worse. CT abdomen and pelvis W IV contrast (01/03) Distended fluid-filled loops of proximal and mid small bowel without a focal transition point or obstructing mass/lesion. The colon is normal in caliber. Pt seen by GS who recommends nonoperative management- NG tube has been discontinued, pt states tolerating clear liquids - Diarrhea began after arrival, of note took OTC medication prior to arrival states fecal urgency after eating (01/06) Pt reports symptoms improving today, diet advanced to soft foods and so far tolerating. Denies nausea, vomiting, abdominal pain. Diarrhea seems to be slowing down. Symptoms are stable at this time, our service will sign off, pt can have EGD done outpatient Plan: EGD outpatient Advance diet as tolerated We will sign off, please reconsult as needed Have pt follow up with GI after DC Pt has been seen and examined by myself and Dr. Hayden and this note is written on his behalf (Harriett Littlejohn) Physician Comments Agree with above assessment and plan. Please notify us if needed . (Uriel Hayden MD) Harriett Littlejohn Jan 06, 2018 14:30 Uriel Hayden MD Jan 06, 2018 14:37
[2018-01-06 16:00] VITALS: BP 115/57; PULSE 62; RESP 19; TEMP 97.4; O2SAT 97
[2018-01-06] MEDS ORDERED: ZOFR4TAB PO (18:58)
--- NOTE | 2018-01-06 18:59 | HHI.DS ---
Discharge Summary Admission Date January 03, 2018 at 22:22 Discharge Date: Jan 07, 2018 Admitting Diagnosis Small bowel obstruction (1) Small bowel obstruction ICD Code: K56.609 - Unspecified intestinal obstruction, unspecified as to partial versus complete obstruction Status: Acute (2) GERD (gastroesophageal reflux disease) ICD Code: K21.9 - Gastro-esophageal reflux disease without esophagitis (3) Hyperlipidemia ICD Code: E78.5 - Hyperlipidemia, unspecified (4) Irritable bowel syndrome (IBS) ICD Code: K58.9 - Irritable bowel syndrome without diarrhea Procedures none Brief History - From Admission 77-year-old female with past medical history significant for irritable bowel, hyperlipidemia, GERD and depression presents to the emergency department for evaluation of abdominal pain. The patient reports her abdominal pain is diffuse throughout her abdomen and began at 3 PM today. She reports she last had a small bowel movement in the waiting room of the emergency department. She denies any episodes of emesis. No nausea or diarrhea. Endorses frequent belching. The patient has had a previous appendectomy and BTL. She denies any chest pain or shortness of breath. No fevers/chills. No lateralizing signs/ symptoms. CBC/BMP: 01/04/18 0538 01/04/18 0538 Significant Findings Laboratory Tests Test 01/03/18 20:25 01/03/18 22:30 01/04/18 05:38 Neutrophils (%) (Auto) 81.2 % (16.0-70.0) 76.6 % (16.0-70.0) Neutrophils # (Auto) 8.8 TH/MM3 (1.8-7.7) Creatinine 1.05 MG/DL (0.50-1.00) Sodium Level 133 MEQ/L (136-145) Chloride Level 95 MEQ/L (98-107) Estimat Glomerular Filtration Rate 51 ML/MIN (>89) 63 ML/MIN (>89) Troponin I LESS THAN 0.02 NG/ML Urine Specific [place] 1.050 (1.002-1.035) Urine Leukocyte Esterase MOD (NEG) Monocytes (%) (Auto) 8.6 % (0.0-8.0) Lymphocytes # (Auto) 0.9 TH/MM3 (1.0-4.8) Imaging Last Impressions Chest X-Ray 01/03/182029 Signed Impressions: CONCLUSION: Underinflated examination with mild atelectasis at the lung bases. Otherwise, n o acute finding is identified. Abdomen/Pelvis CT 01/03/182029 Signed Impressions: CONCLUSION: 1. Distended fluid-filled loops of proximal and mid small bowel without a foca l transition point or obstructing mass/lesion. The colon is normal in caliber. Gall Bladder Ultrasound 01/03/18 Signed Impressions: CONCLUSION: Abdomen ultrasound is within normal limits. Please refer to today's CT examinat ion report for further description of the abdominal findings. PE at Discharge GENERAL: female sitting up in bed CARDIOVASCULAR: Regular rate and rhythm without murmurs, gallops, or rubs. RESPIRATORY: Clear to auscultation. Breath sounds equal bilaterally. No wheezes , rales, or rhonchi. GASTROINTESTINAL: Abdomen soft, mildly tender to palpation throughout, nondistended. Hypoactive bowel sounds. No hepato-splenomegaly, or palpable masses. No guarding. MUSCULOSKELETAL: Extremities without clubbing, cyanosis, or edema. No joint tenderness, effusion, or edema noted. No calf tenderness. NEUROLOGICAL: Awake and alert. Cranial nerves II through XII intact. Motor and sensory grossly within normal limits. Normal speech. Pt update on day of discharge Feels better able to tolerate food no n/v/d/c no abd pain denies chest pain or sob Hospital Course Partial small bowel obstruction CT of the abdomen/pelvis significant for distended fluid-filled loops of proximal and mid small bowel without a focal transition point or obstructing mass. Advance diet to regular diet DC NG tube General surgery consulted, appreciate recommendations no surgical interventio indicated Received IVF. Encourage PO hydration Consulted GI, patient is improving, plan for EGD as OP. To follow up as OP with GI Hyperlipidemia/depression/GERD Continue home medications Patient improved significantly Tolerates food Cleared by gen surg and GI for DC Patient to follow up as OP with PCP and consultants. Pt Condition on Discharge: Stable Discharge Disposition: Discharge Home Discharge Time: > 30 minutes Discharge Instructions DIET: Follow Instructions for: Heart Healthy Diet Activities you can perform: Regular-No Restrictions Follow up Referrals: Gastroenterology - 1 Week with Uriel Hayden MD PCP Follow-up - 2-3 Days with Do Fredy Barnett MD New Medications: Ondansetron (Zofran) 4 Mg Tab 4 MG PO Q8HR PRN for NAUSEA OR VOMITING, #30 TAB 0 Refills Continued Medications: Escitalopram (Lexapro) 10 Mg Tab 10 MG PO DAILY, #30 TAB 0 Refills Omeprazole (Omeprazole) 20 Mg Tab 20 MG PO DAILY, #30 TAB 0 Refills Simvastatin (Simvastatin) 10 Mg Tab 10 MG PO DAILY for Cholesterol Management, #30 TAB 0 Refills Susy Ybarra MD Jan 06, 2018 18:59
[2018-01-06 20:00] VITALS: BP 128/60; PULSE 67; RESP 18; TEMP 97.8; O2SAT 96
[2018-01-07] VITALS: BP 139/76; PULSE 67; RESP 18; TEMP 97.6; O2SAT 96
[2018-01-07] MEDS: SODIUM CHLOR 0.9% 1000 ML INJ 1,000 ML IV SCH (05:09)
[2018-01-07 08:00] VITALS: BP 139/65; PULSE 62; RESP 17; TEMP 97.7; O2SAT 97
[2018-01-07 08:02] VITALS: PULSE 64
[2018-01-07] MEDS: SODIUM CHLORIDE 0.9% FLUSH 10 ML FLUSH IV FLUSH SCH (09:00)
[2018-01-07] MEDS: ACETAMINOPHEN 325 MG TAB PO PRN (11:19)
[2018-01-07 12:00] VITALS: BP 128/71; PULSE 67; RESP 17; TEMP 97.7; O2SAT 96
--- NOTE | 2018-01-07 14:29 | HHI.PR ---
cc: Lang Castro MD Subjective Subjective Notes Resting in bed Tolerating soft diet Dr. Ybarra at bedside as well Objective Vitals/I&O Vital Signs Date Time Temp Pulse Resp B/P (MAP) Pulse Ox O2 Delivery O2 Flow Rate FiO2 01/07/18 12:00 97.7 67 17 128/71 (90) 96 01/03/18 22:30 Room Air Radiology Last 48 hours Impressions Chest X-Ray 01/03/182029 Signed Impressions: CONCLUSION: Underinflated examination with mild atelectasis at the lung bases. Otherwise, n o acute finding is identified. Abdomen/Pelvis CT 01/03/182029 Signed Impressions: CONCLUSION: 1. Distended fluid-filled loops of proximal and mid small bowel without a foca l transition point or obstructing mass/lesion. The colon is normal in caliber. Gall Bladder Ultrasound 01/03/18 0000 Signed Impressions: CONCLUSION: Abdomen ultrasound is within normal limits. Please refer to today's CT examinat ion report for further description of the abdominal findings. Cardiovascular: Regular Lungs: Clear Abdomen: Non-distended, Non-tender Extremities: No edema A/P Problem List: (1) GERD (gastroesophageal reflux disease) ICD Codes: K21.9 - Gastro-esophageal reflux disease without esophagitis (2) Hyperlipidemia ICD Codes: E78.5 - Hyperlipidemia, unspecified (3) Irritable bowel syndrome (IBS) ICD Codes: K58.9 - Irritable bowel syndrome without diarrhea Assessment and Plan 77 year old female with SBO vs ileus -Symptoms resolved -Tolerating soft diet -+BM -Patient to follow up with GI for outpatient EGD - clear for Rina Thorpe/First Leticia PAYAN Jan 07, 2018 14:29
== END 2018-01-07 13:29 | disposition home or self-care (01) | DRG 390 ==
LOC: NEPE 19:22 → NEDA 22:22 → N07A 23:20
PROVIDERS: ADMIT Hospitalist; ATTEND Hospitalist
DX: K56.600 Partial intestinal obstruction, unspecified as to cause (principal); E78.5 Hyperlipidemia, unspecified; K21.9 Gastro-esophageal reflux disease without esophagitis; J45.909 Unspecified asthma, uncomplicated; K58.9 Irritable bowel syndrome, unspecified; A08.4 Viral intestinal infection, unspecified; M19.90 Unspecified osteoarthritis, unspecified site; F32.9 Major depressive disorder, single episode, unspecified; Z88.5 Allergy status to narcotic agent
CPT/HCPCS: 71045; 74177; 76705; 80048; 80053; 81001; 82550; 82552; 83690; 83735; 84484; 85025; 85610; 85730; 93005; J7030; Q9967